=== PATIENT | male | born 1950 | race Caucasian/White ===

== ENCOUNTER → 2021-10-03 10:33 | Outpatient (BNVA) | payer MEDICARE, SELFPAY | PROVIDERS: PCP Family Medicine; Referring Provider Nurse Practitioner Family; Visit Provider Surgery | DX: K40.90 Unilateral inguinal hernia, without obstruction or gangrene, not specified as recurrent (principal) | CPT/HCPCS: 99204 ==

== ENCOUNTER 2021-12-18 06:52 | Day surgery (SDC) | payer MEDICARE, SELFPAY ==
[2021-12-15 09:44] VITALS: BMI 26.2
[2021-12-18] VITALS (9 sets, daily range): BP systolic 110–144; BP diastolic 68–88; PULSE 48–54; RESP 16–18; TEMP 36.5–37.1; O2SAT 97–100
[2021-12-18] MEDS: sodium chloride 0.9% 1,000 ML 30 ML IV (07:18)
--- NOTE | 2021-12-18 07:35 | W.PM.OPSFHP ---
Same Day Surgery H&P Indication for Procedure/HPI DATE OF PROCEDURE: December 18, 2021 CHIEF COMPLAINT/INDICATIONFOR SURGICAL PROCEDURE: right inguinal hernia repair PREOP DIAGNOSIS: inguinal hernia PLANNED PROCEDURE: Operation Date: 12/18/21 08:30 Proposed Procedures p Lap possible open right inguinal hernia repair with mesh 02384,k40.3(Right) - Dylon Sena MD Medications/Allergies* Home Medications Medication Instructions Recorded Confirmed Type fluorouracil 5 % topical cream 1 applic TOPICAL DAILY 05/09/20 12/18/21 History bupropion HCl 100 mg tablet,12 hr 100 mg PO DAILY 04/10/21 12/18/21 History sustained-release (Wellbutrin SR) glucosamine HCl 500 mg tablet 500 mg PO DAILY 07/25/21 12/15/21 History melatonin 10 mg tablet 10 mg PO DAILY PRN 07/25/21 12/18/21 History omega-3 fatty acids 1,000 mg 1,000 mg PO DAILY 07/25/21 12/18/21 History capsule (Fish Oil Concentrate) Lactobacillus acidophilus 10 10,000 mmu cells PO DAILY 12/15/21 12/18/21 History billion cell capsule (Probiotic) Allergies/Adverse Reactions Allergy/AdvReac Type Severity Reaction Status Date / Time No Known Allergies Allergy Verified 12/18/21 07:03 Current Medications: Generic Name Dose Route Start Last Admin Trade Name Freq PRN Reason Stop Dose Admin Sodium Chloride 1,000 mls @ 30 mls/hr 12/18/21 07:00 12/18/21 07:18 Sodium Chloride 0.9% IV 12/19/21 06:59 30 mls/hr .Q24H MORE Administration Pertinent History/Comorbid Conditions* Medical History (Updated 10/03/21 @ 10:57 by Dylon Sena MD) History of malignant melanoma History of nonmelanoma skin cancer Surgical History (Updated 10/03/21 @ 10:57 by Dylon Sena MD) H/O knee surgery History of colonoscopy due for one indeec Family History (Updated 05/09/20 @ 11:29 by Luh Wick LPN) Diabetes Cancer Social History Smoking and tobacco status: former smoker Alcohol intake: current Pertinent Exam Findings alert, oriented x 3, regular rate & rhythm and operative site marked Recommendations Surgery/Procedure today Coding Level of Care Code 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
--- NOTE | 2021-12-18 08:18 | ANES.PREANE2 ---
Pre-Anesthetic Assessment Height/Weight: Height 1.93 m Weight 97.522 kg Temp Pulse Resp BP Pulse Ox 97.8 F 50 L 18 144/88 97 12/18/21 07:05 12/18/21 07:05 12/18/21 07:05 12/18/21 07:05 12/18/21 07:05 Preop Diagnosis: inguinal hernia Operation Date: 12/18/21 08:30 Proposed Procedures p Lap possible open right inguinal hernia repair with mesh 81209,k40.3(Right) - Dylon Sena MD Familial anesthetic complications: None Was Beta Yessi taken within 24 hours: N/A Was Clonidine taken within 24 hours: N/A Last intake: Intake Last Liquid Date 12/18/21 Last Liquid Time 02:30 Last Solid Date 12/17/21 Last Solid Time 21:00 Social Alcohol (a beer a night) and No tobacco Exam alert, oriented x 3, clear to auscultation bilaterally and regular rate & rhythm Airway Mallampati: Class III Dentition: full Neuropsych Anxiety Anesthetic Plan ASA status: 2 Anesthesia: General Risk of > 500 ml blood loss (7ml/kg in children): No Medications/Allergies Home Medications Medication Instructions Recorded Confirmed Last Taken Type fluorouracil 5 % topical cream 1 applic TOPICAL DAILY 05/09/20 12/18/21 12/17/21 20:00 History bupropion HCl 100 mg tablet,12 hr 100 mg PO DAILY 04/10/21 12/18/21 12/17/21 06:00 History sustained-release (Wellbutrin SR) glucosamine HCl 500 mg tablet 500 mg PO DAILY 07/25/21 12/15/21 Unknown History melatonin 10 mg tablet 10 mg PO DAILY PRN 07/25/21 12/18/21 12/17/21 21:00 History omega-3 fatty acids 1,000 mg 1,000 mg PO DAILY 07/25/21 12/18/21 Unknown History capsule (Fish Oil Concentrate) Lactobacillus acidophilus 10 10,000 mmu cells PO DAILY 12/15/21 12/18/21 12/17/21 06:00 History billion cell capsule (Probiotic) Allergies Allergy/AdvReac Type Severity Reaction Status Date / Time No Known Allergies Allergy Verified 12/18/21 07:03 Current Medications Generic Name Dose Route Start Last Admin Trade Name Freq PRN Reason Stop Dose Admin Sodium Chloride 1,000 mls @ 30 mls/hr 12/18/21 07:00 12/18/21 07:18 Sodium Chloride 0.9% IV 12/19/21 06:59 30 mls/hr .Q24H MORE Administration PFSH Anesthesia Medical History (Updated 10/03/21 @ 10:57 by Dylon Sena MD) History of malignant melanoma History of nonmelanoma skin cancer Surgical History (Updated 10/03/21 @ 10:57 by Dylon Sena MD) H/O knee surgery History of colonoscopy due for one indeec Family History Other Cancer Diabetes Social History Smoking and tobacco status: former smoker Alcohol intake: current Data Anesthesia Cardiac Studies: No Data to Display
[2021-12-18] MEDS: ceFAZolin 2,000 MG in sodium chloride 0.9% (plus) 50 ML 100 MG IV (08:32)
--- NOTE | 2021-12-18 10:20 | P.OP_ITS ---
Operative Report Date of procedure: December 18, 2021 Pre-op diagnosis: Reducible right inguinal hernia Post-op diagnosis: Reducible indirect right inguinal hernia with lipoma of the spermatic cord Procedure done: 1. Laparoscopic total extraperitoneal repair of indirect right inguinal hernia with 12 x 17 Surgimax 3D mesh 2. Excision of lipoma of the spermatic cord Pathology: none sent Surgeon: Dylon Sena Anesthesia: General Condition: stable Disposition: PACU Procedure: The patient was taken to the operating room and intubated under general anesthesia. After IV antibiotic was administered, the abdomen was prepped and draped in a sterile manner. Using a 15 blade, a 1.0 cm transverse incision was made infraumbilically on the right side. Subcutaneous tissue was divided using electrocautery and the anterior rectus sheath divided using an 11 blade. The rectus muscle was retracted laterally and the extraperitoneal space identified. A 11 mm port was placed and 12 mm of pneumoperitoneum was created. A 10 mm 30? scope was introduced and the retrorectus space was opened using the camera up to the pubic symphysis and 5 mm ports were placed in the midline, one 2- fingerbreadths above the pubic symphysis and the other midway between these two ports under direct visualization. Blunt dissection was carried out to open up the tissue in the midline and to the pubic symphysis, which was identified. The dissection was then carried laterally where the iliopubic tract was identified. There was no femoral, obturator or direct hernia noted. The inferior epigastric artery was identified and dissection was carried posterior to it and laterally, the space was opened up to the level of the umbilicus superior to the anterior superior iliac spine. I then proceeded to dissect out the spermatic cord and the indirect hernial sac was reduced . There is a moderate size lipoma of the spermatic cord which was excised. 12 x 17cm Surgimax 3D mesh was rolled and introduced through the 10 mm port and rolled laterally and apposed well against the abdominal wall to cover the myopectineal orifice completely. 10 Cc of 0.25% Marcaine was infiltrated into the preperitoneal space. The extraperitoneal space was desufflated under direct visualization to ensure no slippage of hernial sac under the mesh. All ports were removed, the anterior rectus fascia at the infraumbilical port closed using figure of eight 0 Vicryl sutures, subcutaneous tissue approximated using 3-0 Vicryl sutures and skin at all three port sites were closed using running subcuticular 4-0 Monocryl sutures and Dermabond. 10 mL of 0.25% Marcaine was infiltrated at the port sites. The patient was stable throughout the procedure, extubated and transferred to recovery room.
[2021-12-18] MEDS: cetylpyridinium Lozenge 1 EACH MUCOUS MEM (10:42)
[2021-12-18] MEDS: HYDROcodone-acetaminophen 5-325 mg Tablet 1 TAB PO (10:43)
--- NOTE | 2021-12-18 12:00 | ANE.PACU2 ---
Inpatient post-anesthesia follow up: Airway intact: Yes Vital signs: Temperature 98.7 F Pulse Rate 48 Respiratory Rate 16 Blood Pressure 125/84 Pulse Oximetry 97 Oxygen Delivery Me thod Room Air Oxygen Flow Rate 5 Fraction of Inspir ed Oxygen Hydration adequate: Yes Nausea and vomiting: No Pain level: 1 Mental status: Baseline
== END 2021-12-18 11:38 | disposition home or self-care (01) ==
PROVIDERS: PCP Family Medicine; Visit Provider Surgery
PROC: (CPT 49650; principal; 2021-12-18 08:30)
DX: K40.90 Unilateral inguinal hernia, without obstruction or gangrene, not specified as recurrent (principal); D17.6 Benign lipomatous neoplasm of spermatic cord; Z87.891 Personal history of nicotine dependence
CPT/HCPCS: 49505; C1781; J1100; J2001; J2250; J2405; J2704; J3010; J3490; J7030

== ENCOUNTER → 2022-01-09 08:38 | Outpatient (BNVA) | payer MEDICARE, SELFPAY | PROVIDERS: PCP Family Medicine; Visit Provider Surgery | DX: Z98.890 Other specified postprocedural states (principal) | CPT/HCPCS: 99024 ==

== ENCOUNTER → 2022-11-01 11:26 | Outpatient (BNVA) | payer MEDICARE, SELFPAY | PROVIDERS: PCP Family Medicine; Visit Provider Nurse Practitioner Family | DX: L85.3 Xerosis cutis (principal); D22.5 Melanocytic nevi of trunk; L81.4 Other melanin hyperpigmentation; Z85.820 Personal history of malignant melanoma of skin; Z85.828 Personal history of other malignant neoplasm of skin; Z71.89 Other specified counseling; L82.1 Other seborrheic keratosis; L57.8 Other skin changes due to chronic exposure to nonionizing radiation; L91.0 Hypertrophic scar; L57.0 Actinic keratosis; C44.329 Squamous cell carcinoma of skin of other parts of face | CPT/HCPCS: 11102; 17004; 17110; 99204 ==

== ENCOUNTER → 2022-12-17 08:00 | Outpatient (BNVA) | payer MEDICARE, SELFPAY | PROVIDERS: PCP Family Medicine; Visit Provider Dermatology | DX: C44.329 Squamous cell carcinoma of skin of other parts of face (principal) | CPT/HCPCS: 12052; 17311; 17312 ==

== ENCOUNTER → 2023-02-05 10:45 | Outpatient (BNVA) | payer MEDICARE, SELFPAY | PROVIDERS: PCP Family Medicine; Visit Provider Nurse Practitioner Family | DX: L57.0 Actinic keratosis (principal); Z85.828 Personal history of other malignant neoplasm of skin; Z71.89 Other specified counseling; L85.3 Xerosis cutis; D22.5 Melanocytic nevi of trunk; L81.4 Other melanin hyperpigmentation; L57.8 Other skin changes due to chronic exposure to nonionizing radiation; L82.1 Other seborrheic keratosis; L91.0 Hypertrophic scar | CPT/HCPCS: 17004; 17110; 99214 ==

== ENCOUNTER → 2023-05-15 13:26 | Outpatient (BNVA) | payer MEDICARE, SELFPAY | PROVIDERS: PCP Family Medicine; Visit Provider Nurse Practitioner Family | DX: L57.0 Actinic keratosis (principal); Z85.820 Personal history of malignant melanoma of skin; Z85.828 Personal history of other malignant neoplasm of skin; L30.8 Other specified dermatitis; L85.3 Xerosis cutis; D22.5 Melanocytic nevi of trunk; L81.4 Other melanin hyperpigmentation; L82.1 Other seborrheic keratosis; L57.8 Other skin changes due to chronic exposure to nonionizing radiation; L91.0 Hypertrophic scar | CPT/HCPCS: 17000; 99214 ==

== ENCOUNTER → 2023-10-10 10:18 | Outpatient (BNVA) | payer MEDICARE, SELFPAY | PROVIDERS: PCP Family Medicine; Visit Provider Dermatology | DX: L57.0 Actinic keratosis (principal); D48.5 Neoplasm of uncertain behavior of skin; L57.8 Other skin changes due to chronic exposure to nonionizing radiation; L81.4 Other melanin hyperpigmentation; L81.7 Pigmented purpuric dermatosis; D22.5 Melanocytic nevi of trunk; Z85.820 Personal history of malignant melanoma of skin; Z85.828 Personal history of other malignant neoplasm of skin | CPT/HCPCS: 11102; 17000; 99213 ==

== ENCOUNTER → 2024-01-07 14:46 | Outpatient (BNVA) | payer MEDICARE, SELFPAY | PROVIDERS: PCP Family Medicine; Visit Provider Dermatology | DX: L57.8 Other skin changes due to chronic exposure to nonionizing radiation (principal); L81.4 Other melanin hyperpigmentation; L81.7 Pigmented purpuric dermatosis; D22.5 Melanocytic nevi of trunk; L57.0 Actinic keratosis | CPT/HCPCS: 17000; 99213 ==

== ENCOUNTER → 2024-07-09 12:39 | Outpatient (BNVA) | payer MEDICARE, SELFPAY | PROVIDERS: PCP Family Medicine; Visit Provider Dermatology | DX: L57.8 Other skin changes due to chronic exposure to nonionizing radiation (principal); L81.4 Other melanin hyperpigmentation; L82.1 Other seborrheic keratosis; Z85.820 Personal history of malignant melanoma of skin; Z08 Encounter for follow-up examination after completed treatment for malignant neoplasm; Z85.828 Personal history of other malignant neoplasm of skin; L57.0 Actinic keratosis | CPT/HCPCS: 17004; 99213 ==

== ENCOUNTER → 2024-10-06 12:50 | Outpatient (BNVA) | payer MEDICARE, SELFPAY | PROVIDERS: PCP Family Medicine; Visit Provider Dermatology | DX: L57.8 Other skin changes due to chronic exposure to nonionizing radiation (principal); L81.4 Other melanin hyperpigmentation; L82.1 Other seborrheic keratosis; D18.01 Hemangioma of skin and subcutaneous tissue; Z85.820 Personal history of malignant melanoma of skin; Z08 Encounter for follow-up examination after completed treatment for malignant neoplasm; Z85.828 Personal history of other malignant neoplasm of skin; L57.0 Actinic keratosis | CPT/HCPCS: 17004; 99213 ==

== ENCOUNTER → 2025-02-10 15:26 | Outpatient (BNVA) | payer MEDICARE, SELFPAY | PROVIDERS: PCP Family Medicine; Visit Provider Nurse Practitioner Family | DX: L57.8 Other skin changes due to chronic exposure to nonionizing radiation (principal); L81.4 Other melanin hyperpigmentation; L82.1 Other seborrheic keratosis; D18.01 Hemangioma of skin and subcutaneous tissue; Z85.820 Personal history of malignant melanoma of skin; Z08 Encounter for follow-up examination after completed treatment for malignant neoplasm; Z85.828 Personal history of other malignant neoplasm of skin; L57.0 Actinic keratosis; D48.5 Neoplasm of uncertain behavior of skin | CPT/HCPCS: 11102; 17004; 99213 ==

== ENCOUNTER → 2025-02-24 10:05 | Outpatient (BNVA) | payer MEDICARE, SELFPAY | PROVIDERS: PCP Family Medicine; Visit Provider Dermatology | DX: D04.5 Carcinoma in situ of skin of trunk (principal) | CPT/HCPCS: 17262 ==